=== PATIENT | female | born 1970 | race Caucasian/White ===

== ENCOUNTER → 2018-04-08 16:39 | Outpatient (CLI) | payer BC | END | disposition home or self-care (01) | LOC: D.MAMMO 13:45 | DX: Z12.31 Encounter for screening mammogram for malignant neoplasm of breast (principal) ==

== ENCOUNTER 2018-05-13 19:00 | Outpatient (CLI) | payer BC | END 2018-05-13 23:59 | disposition home or self-care (01) | LOC: D.MAMMO 19:00 | PROVIDERS: ATTEND Obstetrics & Gynecology | DX: R92.2 Inconclusive mammogram (principal) ==

== ENCOUNTER → 2019-02-19 12:56 | Outpatient (CLI) | payer BC | END | disposition home or self-care (01) | LOC: D.RAD 12:56 | PROVIDERS: ATTEND Family Medicine | DX: M54.12 Radiculopathy, cervical region (principal); S46.911A Strain of unspecified muscle, fascia and tendon at shoulder and upper arm level, right arm, initial encounter ==

== ENCOUNTER → 2019-08-18 10:33 | Outpatient (CLI) | payer BC | END | disposition home or self-care (01) | LOC: D.MRI 10:33 | PROVIDERS: ATTEND Orthopaedic Surgery | DX: M93.261 Osteochondritis dissecans, right knee (principal) ==

== ENCOUNTER 2019-11-09 09:00 | Outpatient (CLI) | payer BC | END 2019-11-09 09:01 | disposition home or self-care (01) | LOC: D.MAMMO 09:00 | PROVIDERS: ATTEND Student in an Organized Health Care Education/Training Program | DX: Z12.31 Encounter for screening mammogram for malignant neoplasm of breast (principal) ==